=== PATIENT | female | born 1975 | race Caucasian/White ===

== ENCOUNTER 2017-09-05 10:33 | Outpatient (CLI) | payer BC ==
--- NOTE | 2017-09-05 12:53 | Ultrasound Report ---
ULTRASOUND RIGHT BREAST: 09/05/2017 CLINICAL INDICATION: Palpable abnormality in her right breast. TECHNIQUE: Real-time scanning was performed with digital media representative static images obtained. FINDINGS: Ultrasound of the palpable abnormality identified by the patient was performed. Unremarkable parenchymal lobules are present. No discrete solid or cystic lesion is identified. No sonographically suspicious findings are appreciated. IMPRESSION: NEGATIVE EXAMINATION. RECOMMENDATION: Routine annual screening unless otherwise clinically indicated. BI-RADS CATEGORY 1 - NEGATIVE. TD: 09/05/2017 12:52
--- NOTE | 2017-09-05 13:19 | Mammography Report ---
DIAGNOSTIC BILATERAL MAMMOGRAM: 09/05/2017 CLINICAL INDICATION: Palpable abnormality in her right breast. TECHNIQUE: Bilateral CC and MLO views, right true lateral view. A marker was placed at the site of palpable abnormality identified by the patient. COMPARISON: This is the patient's baseline examination. FINDINGS: The breasts demonstrate scattered fibroglandular densities bilaterally. Coarse and punctate, typically benign calcifications are present. Specifically, no mammographic abnormality is appreciated at the inner right breast, at the site of the marker. Please also refer to right breast ultrasound of the same day. IMPRESSION: BENIGN FINDINGS. RECOMMENDATION: Routine annual screening unless otherwise clinically indicated. BI-RADS CATEGORY 2 - BENIGN FINDINGS. STANDARD QUALIFYING STATEMENTS: 1. This examination was reviewed with the aid of Computer-Aided Detection (CAD). 2. A negative or benign imaging report should not delay biopsy if clinically suspicious findings are present. Consider surgical consultation if warranted. More than 5% of cancers are not identified by imaging. 3. Dense breasts may obscure an underlying neoplasm. TD: 09/05/2017 13:17
== END 2017-09-05 10:34 | disposition home or self-care (01) ==
LOC: DI 10:33
PROVIDERS: ATTEND Physician Assistant
DX: N63.0 Unspecified lump in unspecified breast (principal)
CPT/HCPCS: 76642; 77066